=== PATIENT | female | born 1975 | race Two or more races ===

== ENCOUNTER 2018-08-23 01:20 | Emergency (ER) | payer SELFPAY ==
[2017-03-05 11:59] VITALS: Wt 49.9 kg
[~2018-08-23 01:20] MED LIST: ALB0.5 INH; ALB6.7R INH; CITA-155 PO; DOXY-179 PO; FLUT1DIS27 IH; HYDR-2946 PO; IBU800 PO; IBUP-136 PO; IBUP800T37 PO; KET10 PO; LEV500 PO; LEVO50TA86 PO; LOR5 PO; LOR5/325 PO; MED150I IM; MEDROL DOSEPAK; METR-1 PO; METR500T54 PO; MUSCLE RELAXANT; OMEP-218 PO; OND4 PO; ONDA4TAB PO; OXYC-865 PO; PER PO; PROM-110 PO; PROM12.546 PO; SUM25 PO; TAMS0.4C70 PO; TRAM-420 PO; TRAZ50TA34 PO; VICODIN
--- NOTE | 2018-08-23 01:25 | ER Report ---
History and Physical Time Seen By MD: 01:25 HPI/ROS CHIEF COMPLAINT: multiple complaints HISTORY OF PRESENT ILLNESS: This is a 42 year old female. She is [place] speaking with a little bit of [place] Citizen. Most of the nurses and my interviews were with the nuisance wildlife control operator line. I did do the physical exam and some questions with my limited [place]. She has a cough, productive of green sputum, with increased blowing nose. She has had nausea and vomiting, and brought in the contents of her emesis in a glass jar. She has had some upset stomach. Mild shortness of breath, but chest pain. She is having pain in her hands/fingers and feet/toes. This includes swelling and redness of the tips and joints. She says she has seen bugs crawling on and biting her. She also complains of pain in the genital area with pain there and burning with urination. She is on her period, but no discharge prior. Symptoms started 2 days ago. She was in [place] with a friend who had similar symptoms about 3 days ago. Another interesting note, is that she says she has a streptococcus infection because of what she has red on the internet about her symptoms. She denies being around anyone with Strep recently. She says that she bought mild, fruit and juices at the store 2 days ago and because she has touched them with her infection, they have all spoiled, and the milk curdled. She has chills but no fevers. Allergies: Coded Allergies: Penicillins (Verified Allergy, Mild, 08/23/18) levofloxacin (Verified Allergy, Mild, rash on infusion, 08/23/18) Home Meds Active Scripts Hydrocodone Bit/Acetaminophen (HYDROCODON-ACETAMINOPHEN 5-325) 1 Each Tablet, 1 EACH PO Q4H PRN for PAIN, #6 TAB 0 Refills Prov:NEHA TO MD 08/23/18 Prednisone (PREDNISONE) 20 Mg Tablet, 40 MG PO QDAY, #8 TAB 0 Refills Prov:NEHA TO MD 08/23/18 Doxycycline Hyclate (DOXYCYCLINE HYCLATE) 100 Mg Tablet, 100 MG PO BID, #20 TAB 0 Refills Prov:NEHA TO MD 08/23/18 Reported Medications Albuterol Sulfate (PROVENTIL HFA) 6.7 Gm Inh, 1-2 PUFF INH 3-4XD, INH 02/14/17 Fluticasone/Salmeterol (ADVAIR 100-50 DISKUS) 1 Each Disk.w.dev, 1 EACH IH 02/14/17 Reviewed Nurses Notes: Yes Hx Smoking: No Smoking Status: Unknown if Ever Smoked Hx Substance Use Disorder: No Hx Alcohol Use: No Constitutional Physical Exam General Appearance: The patient is alert. She is uncomfortable and noticeably has pain in hands and feel. Non-toxic in appearance. Eyes: Pupils are equal, round. No pallor, injection or icterus. ENT: Mucous membranes are moist. Normal oral mucosa. Posterior oropharynx is normal. Neck: Supple and non tender. No lymphadenopathy. Respiratory: Lungs have rhonchi, but no wheezing or rales. Cardiovascular: Regular rate and rhythm. No murmurs, gallops or rubs. Normal capillary refill. No edema. Gastrointestinal: Abdomen is soft, with diffuse discomfort, but no focal tenderness. Nondistended. No masses or organomegaly. Normal active bowel sounds. No costovertebral angle tenderness with percussion. Genitourinary: With a ultrasound coordinator, I examined the pelvic area. The pubis area is shaved, and there are multiple areas where the skin around the follicles is red and a few pustules and scabs. She is on her period with menstrual flow evident. No other lesions noted. Vaginal swab obtained. Neurological: Alert and oriented x3. Cranial nerves II through XII show no acute deficits on my exam. No focal neurologic deficits in the extremities. Skin: Warm and dry. Has some swelling in hands and fingers, mainly at the tips of the fingers/toes and joints of the fingers/toes. Musculoskeletal: Extremities are otherwise nontender. No tenderness in palpation of the cervical, thoracic and lumbar spine. DIFFERENTIAL DIAGNOSIS: After history and physical exam, differential diagnosis was considered for a patient with symptoms suggesting a viral syndrome, but would consider other infectious etiologies as well. Swelling on the hands and feet appears most likely reactive to a viral process. No palms or sole lesions noted. She does have folliculitis present as noted. No signs of infestation. Would consider sexually transmitted diseases as well such a chlamydia, gonorrhea, or syphilis. Medical Decision Making Data Points Laboratory Hematology Test 08/23/18 02:05 08/23/18 03:10 08/23/18 04:00 Influenza Virus Type A (PCR) Negative (NEGATIVE) Influenza Virus Type B (PCR) Negative (NEGATIVE) Urine Color Red Urine Clarity Turbid Urine pH 6.0 pH (4.8-9.5) Urine Specific [place] 1.015 Urine Protein 100 mg/dL (NEGATIVE) Urine Glucose (UA) Negative mg/dL (NEGATIVE) Urine Ketones Trace mg/dL (NEGATIVE) Urine Blood Large (NEGATIVE) Urine Nitrite Negative (NEGATIVE) Urine Bilirubin Negative (NEGATIVE) Urine Urobilinogen 0.2 mg/dL (0.2-1.9) Urine Leukocyte Esterase Trace (NEGATIVE) Urine RBC Tntc /HPF (0-2/HPF) Urine WBC 3-5 /HPF (0-5/HPF) Urine Squamous Epithelial Cells Moderate /LPF (</=FEW) Urine Bacteria Few /HPF (NONE-FEW) Urine Mucus Few /HPF (NONE-FEW) Chlamydia trachomatis Amplified DNA Negative (Negative) Neisseria gonorrhoeae Amplified DNA Negative (Negative) Body Source Urine Rapid Plasma Reagin Nonreactive (NONREACTIVE) Chemistry Test 08/23/18 02:05 08/23/18 03:10 08/23/18 04:00 Influenza Virus Type A (PCR) Negative (NEGATIVE) Influenza Virus Type B (PCR) Negative (NEGATIVE) Urine Color Red Urine Clarity Turbid Urine pH 6.0 pH (4.8-9.5) Urine Specific [place] 1.015 Urine Protein 100 mg/dL (NEGATIVE) Urine Glucose (UA) Negative mg/dL (NEGATIVE) Urine Ketones Trace mg/dL (NEGATIVE) Urine Blood Large (NEGATIVE) Urine Nitrite Negative (NEGATIVE) Urine Bilirubin Negative (NEGATIVE) Urine Urobilinogen 0.2 mg/dL (0.2-1.9) Urine Leukocyte Esterase Trace (NEGATIVE) Urine RBC Tntc /HPF (0-2/HPF) Urine WBC 3-5 /HPF (0-5/HPF) Urine Squamous Epithelial Cells Moderate /LPF (</=FEW) Urine Bacteria Few /HPF (NONE-FEW) Urine Mucus Few /HPF (NONE-FEW) Chlamydia trachomatis Amplified DNA Negative (Negative) Neisseria gonorrhoeae Amplified DNA Negative (Negative) Body Source Urine Rapid Plasma Reagin Nonreactive (NONREACTIVE) Urinalysis Test 08/23/18 03:10 Urine Color Red Urine Clarity Turbid Urine pH 6.0 pH (4.8-9.5) Urine Specific [place] 1.015 Urine Protein 100 mg/dL (NEGATIVE) Urine Glucose (UA) Negative mg/dL (NEGATIVE) Urine Ketones Trace mg/dL (NEGATIVE) Urine Blood Large (NEGATIVE) Urine Nitrite Negative (NEGATIVE) Urine Bilirubin Negative (NEGATIVE) Urine Urobilinogen 0.2 mg/dL (0.2-1.9) Urine Leukocyte Esterase Trace (NEGATIVE) Urine RBC Tntc /HPF (0-2/HPF) Urine WBC 3-5 /HPF (0-5/HPF) Urine Squamous Epithelial Cells Moderate /LPF (</=FEW) Urine Bacteria Few /HPF (NONE-FEW) Urine Mucus Few /HPF (NONE-FEW) Microbiology Microbiology Date/Time Source Procedure Growth Status 08/23/18 03:31 Vaginal Wet Prep - Final Complete 08/23/18 03:10 Clean Catch Midstream Ur Urine Culture - Final CONTAMINATED URINE:... Complete EKG/Imaging Imaging CHEST PA AND LAT COMPARISONS: 2 view chest dated February 14, 2017 ADDITIONAL PERTINENT HISTORY: Cough with chills. FINDINGS: Cardiomediastinal silhouette: Negative. Pulmonary vasculature: Negative. Lung banerjee: Negative. Pleural spaces: Negative. Osseous structures: Negative. Surrounding soft tissues: Negative. IMPRESSION: Normal views of the chest. Report Dictated By: Jeffrey Conway MD at 08/23/2018 2:41 AM ED Course/Re-evaluation ED Course Influenza test negative. Chest x-ray negative. Wet prep without clue cells or other abnormalities other than the blood from her period. RPR is pending. Urinalysis with too much blood from her period, but culture will be obtained. Chlamydia and gonorrhea test also sent on the urine. 250 mg IM was given. She is started on doxycycline which should cover any chlamydial infection as well as folliculitis. I am and a cover with some prednisone to help with the inflammatory response in the hands and feet, I feel like the main problem she is having is a viral syndrome. Reassured her that I do not see any signs of infestation or bugs biting her. Discussed the skin changes from the folliculitis and treatment with the antibiotic. Decision to Disposition Date: Aug 23, 2018 Decision to Disposition Time: 04:12 Depart Departure Latest Vital Signs Impression: Primary Impression: Viral syndrome Additional Impression: Folliculitis Condition: Improved Disposition: HOME OR SELF-CARE New Scripts Hydrocodone Bit/Acetaminophen (HYDROCODON-ACETAMINOPHEN 5-325) 1 Each Tablet 1 EACH PO Q4H PRN for PAIN, #6 TAB 0 Refills Prov: NEHA TO MD 08/23/18 Prednisone (PREDNISONE) 20 Mg Tablet 40 MG PO QDAY, #8 TAB 0 Refills Prov: NEHA TO MD 08/23/18 Doxycycline Hyclate (DOXYCYCLINE HYCLATE) 100 Mg Tablet 100 MG PO BID, #20 TAB 0 Refills Prov: NEHA TO MD 08/23/18 Patient Instructions: Folliculitis (ED), Viral Syndrome (ED) Additional Instructions: It appears that you have a viral infection that is causing the majority of the symptoms that you are having. However, it also appears that you have a skin infection that appears to be folliculitis. We have given you a shot of an antibiotic here in the ER, called Rocephin. We are going to have you take another antibiotic called Doxycycline 100mg twice a day for 10 days. Also take a steroid called Prednisone 20mg, 2 tablets once a day for 4 more days. Follow-up with the [facility] next week for re-evaluation and to follow-up on the labs. Problem Qualifiers NEHA TO MD Aug 23, 2018 01:25
[2018-08-23] MEDS ORDERED: ACET/HYDROC 5/325MG TH ER ONLY 2 TAB/BOTTLE PO ONE ×2 (01:55→04:15)
[2018-08-23] MEDS ORDERED: ONDANSETRON 4 MG ODT TH SL ONE (01:55)
--- NOTE | 2018-08-23 02:46 | RADIOLOGY IMAGING REPORT ---
FACILITY: [facility] [place]IENT NAME: Lucia Cabrales : 1975 MR: [id number] V: [id number] EXAM DATE: ORDERING PHYSICIAN: NEHA TO TECHNOLOGIST: Location: [facility] Patient: Lucia Cabrales : 1975 Visit/Account:[id number] Date of Sevice: 08/23/2018 CHEST PA AND LAT COMPARISONS: 2 view chest dated February 14, 2017 ADDITIONAL PERTINENT HISTORY: Cough with chills. FINDINGS: Cardiomediastinal silhouette: Negative. Pulmonary vasculature: Negative. Lung banerjee: Negative. Pleural spaces: Negative. Osseous structures: Negative. Surrounding soft tissues: Negative. IMPRESSION: Normal views of the chest. Report Dictated By: Jeffrey Conway MD at 08/23/2018 2:41 AM Report E-Signed By: Jeffrey Conway MD at 08/23/2018 2:42 AM WSN:[id number]
[2018-08-23] MEDS ORDERED: DOXYCYCLINE HYCL 100 MG TAB TH PO ONE (04:05)
[2018-08-23] MEDS ORDERED: cefTRIAXone 250 MG VIAL IM ONE (04:05)
[2018-08-23] MEDS ORDERED: PRED20TA6 PO (04:14)
[2018-08-23] MEDS ORDERED: LOR5/325 PO (04:14)
[2018-08-23] MEDS ORDERED: DOXY-179 PO (04:14)
[2018-08-23] MEDS ORDERED: predniSONE 20 MG TAB PO ONE (04:15)
[2018-08-23 05:06] VITALS: BP 101/75
== END 2018-08-23 05:20 | disposition home or self-care (01) ==
LOC: ER 01:40
DX: B34.9 Viral infection, unspecified (principal); L73.9 Follicular disorder, unspecified
CPT/HCPCS: 36415; 71046; 81001; 86592; 87088; 87210; 87491; 87502; 87591; 96372; 99283; J0696; J7512

== ENCOUNTER → 2018-09-03 | Outpatient (CLI) | payer SELFPAY ==
[2017-03-05 11:59] VITALS: BMI 20.4
[~2018-09-03] MED LIST changes: +PRED20TA6 PO; +SOLI10TA8 PO
== END ==
LOC: LAB 15:20
PROVIDERS: ATTEND Urology
DX: N20.0 Calculus of kidney (principal)
CPT/HCPCS: 82365; 88300